=== PATIENT | male | born 1990 | race Caucasian/White ===

== ENCOUNTER 2020-01-17 19:45 | Emergency (ER) | payer BC ==
[~2020-01-17] VITALS: Ht 175.3 cm; Wt 70.5 kg
[2020-01-17 19:46] VITALS: TEMP 98.6
[2020-01-17 19:59] LABS: BASO # 0.1 (0.0-0.2); BASO % 0.6 % (0.0-2.0); EOS # 0.2 (0.0-0.7); EOS % 1.7 % (0-4.0); GRAN # 7.4 (1.4-6.5); GRAN % 68.5 % (42.2-75.2); HEMATOCRIT 48.1 % (42.0-52.0); HEMOGLOBIN 16.8 g/dl (13.5-18.0); LYMPH # 2.6 (1.2-3.4); MEAN CELL VOLUME 87 fl (80.0-100.0); MEAN CORPUSCULAR HEMOGLOBIN 30 pg (27.0-31.0); MEAN CORPUSCULAR HGB CONC 35 g/dl (33.0-37.0); MEAN PLATELET VOLUME 9.8 fl (7.4-10.4); MONO # 0.5 (0.1-0.6); MONO % 4.9 % (1.7-9.3); PLATELET COUNT 330 K/mm3 (130-400); RED BLOOD COUNT 5.53 M/mm3 (4.20-5.60); REDCELL DISTRIBUTION WIDTH-CV 11.7 % (11.5-14.5)
[2020-01-17 20:11] LABS: ALANINE AMINOTRANSFERASE 20 U/L (4-49); ALBUMIN 5.5 gm/dL (3.5-5.0); ALCOHOL(ethanol),MEDICAL 128 mg/dL; ALKALINE PHOSPHATASE 75 U/L (50-136); ANION GAP 16 mmol/L (7-16); AST,SGOT 30 U/L (15-37); BILIRUBIN,TOTAL 1.2 mg/dL (0.0-1.0); BLOOD UREA NITROGEN 18 mg/dL (9-20); CALCIUM 10.3 mg/dL (8.4-10.2); CARBON DIOXIDE 26 mmol/L (22-30); CHLORIDE 104 mmol/L (98-107); CREATININE, serum 0.98 (0.66-1.25); GLUCOSE 98 mg/dL (74-106); LIPASE 67 U/L (23-300); POTASSIUM 4.4 mmol/L (3.4-5.0); SODIUM 146 mmol/L (137-145); TOTAL PROTEIN 9.7 gm/dL (6.4-8.2)
[2020-01-17 20:12] LABS: C-REACTIVE PROTEIN < 0.5 mg/dL (0.0-0.9)
[2020-01-17 22:10] LABS: COLLECTION METHOD CLEAN CATCH
[2020-01-17 22:15] VITALS: BP 126/88; PULSE 111
[2020-01-17 22:16] LABS: MUCOUS Present /lpf; PH 6 (5-8); SQUAMOUS EPITHELIAL None Seen /hpf; URINE APPEARANCE Clear; URINE BACTERIA None Seen /hpf; URINE BILIRUBIN Negative (NEGATIVE); URINE BLOOD Negative (NEGATIVE); URINE COLOR Yellow; URINE GLUCOSE Negative (NEGATIVE); URINE KETONE Trace (NEGATIVE); URINE LEUKOCYTE ESTERASE Negative (NEGATIVE); URINE NITRATE Negative (NEGATIVE); URINE PROTEIN(semi-quant) Negative (NEGATIVE); URINE RBC 0-2 /hpf; URINE UROBILINOGEN Negative (NEGATIVE)
== END 2020-01-17 22:40 | disposition home or self-care (01) ==
LOC: COL.ER 19:45
PROVIDERS: Family Medicine
DX: E86.9 Volume depletion, unspecified (principal); F10.129 Alcohol abuse with intoxication, unspecified
CPT/HCPCS: J2405; J7120